=== PATIENT | female | born 1940 | race Caucasian/White ===

== ENCOUNTER → 2016-10-12 09:24 | Outpatient (CLI) | payer MEDICARE ==
[2016-05-20 14:44] VITALS: BMI 22.9
[~2016-10-12 09:24] MED LIST: ABILIFY15 MG PO; CYMBALTA60 MG PO; DIOVAN80 MG PO; EXFORGE 10-1601 TAB PO; LEVAQUIN500 MG PO; NORVASC10 MG PO; OMEPRAZOLE20 M1 PO; OSTEO BI-FLEX1 EAC1 PO; PEPCID AC20 MG PO; PROTONIX40 MG PO; SEROQUEL100 MG PO; SEROQUEL50 MG PO; ULTRAM50 MG PO; VITAMIN B-121000 MCG PO; VITAMIN D5000 UNIT PO
== END | disposition home or self-care (01) ==
LOC: D.CT 10-11 08:30
DX: R10.32 Left lower quadrant pain (principal)

== ENCOUNTER → 2017-07-04 16:28 | Outpatient (CLI) | payer MEDICARE ==
[2016-05-20 14:44] VITALS: BMI 22.9
== END | disposition home or self-care (01) ==
LOC: D.RAD 10:15
DX: R05 Cough (principal)

== ENCOUNTER 2017-10-10 19:23 | Inpatient (IN) | payer MEDICARE ==
[~2017-10-10] VITALS: Ht 147.3 cm; Wt 43.5 kg
[2017-10-10 21:26] LABS: BASOPHILS 0.2 % (0-2); EOSINOPHILS 0.4 % (0-7); HEMATOCRIT 44.4 % (36.0-48.0); HEMOGLOBIN 14.7 g/dL (12-16); IMMATURE GRANULOCYTES 0.3 % (0-5); LYMPHOCYTES 6.7 % (15-50); MCH 30.1 pg (26.0-34.0); MCHC 33.1 g/dL (31.0-37.0); MCV 90.8 fL (80.0-100.0); MONOCYTES 9.5 % (2-11); NEUTROPHILS 82.9 % (40-80); RBC 4.89 10x6/uL (4.00-5.40); RDW 13.9 % (11.5-14.5); WBC 13.2 10x3/uL (4.8-10.8)
[2017-10-10 21:28] LABS: PLATELET COUNT 152 10x3/uL (130-400)
[2017-10-10 21:54] LABS: ALBUMIN 3.1 g/dL (3.4-5.0); ANION GAP 19.3 mmol/L (8-16); BILIRUBIN - TOTAL 0.41 mg/dL (0.2-1.3); CALCIUM 9.1 mg/dL (8.5-10.1); CARBON DIOXIDE 20.2 mmol/L (21.0-32.0); CREATININE - SERUM 5.5 mg/dL (0.6-1.3); POTASSIUM - SERUM 5.5 mmol/L (3.5-5.1); PROTEIN - SERUM 7.7 g/dL (6.4-8.2); URIC ACID 7.9 mg/dL (2.6-7.2)
[2017-10-11] VITALS (7 sets, daily range): BP systolic 113–148; BP diastolic 51–85; Ht 147.3 cm; Wt 43.5 kg
[2017-10-11 05:45] LABS: APPEARANCE CLOUDY (CLEAR); BILIRUBIN NEGATIVE (NEGATIVE); COLOR YELLOW (YELLOW); GLUCOSE NEGATIVE (NEGATIVE); KETONE NEGATIVE (NEGATIVE); NITRITE NEGATIVE (NEGATIVE); PROTEIN 2+ mg/dL (NEGATIVE); SPECIFIC GRAVITY 1.015 (1.005-1.020); UROBILINOGEN NORMAL (NORMAL)
[2017-10-11 05:47] LABS: BACTERIA MODERATE /hpf (NONE SEEN); EPITHELIAL CELLS 0-5 /hpf (0-5); YEAST >1+ WITH HYPHAE /hpf (NONE SEEN)
[2017-10-11 14:50] LABS: CALCIUM 8.2 mg/dL (8.5-10.1); CREATININE - SERUM 5.1 mg/dL (0.6-1.3)
[2017-10-11 14:51] LABS: ANION GAP 16.7 mmol/L (8-16); CARBON DIOXIDE 25.5 mmol/L (21.0-32.0); POTASSIUM - SERUM 4.2 mmol/L (3.5-5.1)
[2017-10-12 02:22] VITALS: BP 125/81
[2017-10-12 05:58] LABS: BASOPHILS 0.1 % (0-2); EOSINOPHILS 0.4 % (0-7); HEMOGLOBIN 14.1 g/dL (12-16); IMMATURE GRANULOCYTES 0.5 % (0-5); LYMPHOCYTES 9.9 % (15-50); MCH 29.9 pg (26.0-34.0); MCHC 33.6 g/dL (31.0-37.0); MCV 89.2 fL (80.0-100.0); MEAN PLATELET VOLUME 10.6 fL (7.4-10.4); MONOCYTES 13.9 % (2-11); NEUTROPHILS 75.2 % (40-80); PLATELET COUNT 125 10x3/uL (130-400); RBC 4.71 10x6/uL (4.00-5.40); RDW 13.9 % (11.5-14.5); WBC 10.8 10x3/uL (4.8-10.8)
[2017-10-12 06:11] LABS: ANION GAP 15.7 mmol/L (8-16); CALCIUM 7.3 mg/dL (8.5-10.1); CREATININE - SERUM 4.6 mg/dL (0.6-1.3); POTASSIUM - SERUM 3.7 mmol/L (3.5-5.1)
[2017-10-12 08:34] VITALS: BP 128/68
[2017-10-12 11:50] VITALS: BP 106/64
[2017-10-12 16:22] VITALS: BP 100/55
[2017-10-12 20:00] VITALS: BP 127/87
[2017-10-13 04:00] VITALS: BP 128/86
[2017-10-13 05:35] LABS: BASOPHILS 0.1 % (0-2); EOSINOPHILS 0.2 % (0-7); HEMOGLOBIN 13.7 g/dL (12-16); IMMATURE GRANULOCYTES 0.3 % (0-5); LYMPHOCYTES 10.3 % (15-50); MCH 29.3 pg (26.0-34.0); MCHC 32.6 g/dL (31.0-37.0); MCV 89.9 fL (80.0-100.0); MEAN PLATELET VOLUME 10.6 fL (7.4-10.4); MONOCYTES 13.1 % (2-11); PLATELET COUNT 119 10x3/uL (130-400); RBC 4.67 10x6/uL (4.00-5.40); RDW 13.9 % (11.5-14.5); WBC 10.2 10x3/uL (4.8-10.8)
[2017-10-13 05:45] LABS: CARBON DIOXIDE 33.3 mmol/L (21.0-32.0); CREATININE - SERUM 3.7 mg/dL (0.6-1.3)
[2017-10-13 05:46] LABS: ANION GAP 13.4 mmol/L (8-16); CALCIUM 6.7 mg/dL (8.5-10.1); POTASSIUM - SERUM 2.7 mmol/L (3.5-5.1)
[2017-10-13 09:02] VITALS: BP 144/87
[2017-10-13 12:14] VITALS: BP 135/77
[2017-10-13 16:19] VITALS: BP 140/86
[2017-10-13 20:46] VITALS: BP 136/79
[2017-10-14 05:50] LABS: BASOPHILS 0.1 % (0-2); EOSINOPHILS 0.5 % (0-7); HEMATOCRIT 44.4 % (36.0-48.0); HEMOGLOBIN 14.6 g/dL (12-16); IMMATURE GRANULOCYTES 0.3 % (0-5); LYMPHOCYTES 21.5 % (15-50); MCH 29.7 pg (26.0-34.0); MCHC 32.9 g/dL (31.0-37.0); MCV 90.2 fL (80.0-100.0); MEAN PLATELET VOLUME 10.1 fL (7.4-10.4); MONOCYTES 14.3 % (2-11); NEUTROPHILS 63.3 % (40-80); PLATELET COUNT 129 10x3/uL (130-400); RBC 4.92 10x6/uL (4.00-5.40); RDW 13.7 % (11.5-14.5); WBC 11.9 10x3/uL (4.8-10.8)
[2017-10-14 06:05] LABS: ANION GAP 16.5 mmol/L (8-16); CALCIUM 7.3 mg/dL (8.5-10.1); CARBON DIOXIDE 27.7 mmol/L (21.0-32.0); CREATININE - SERUM 2.5 mg/dL (0.6-1.3); POTASSIUM - SERUM 3.2 mmol/L (3.5-5.1)
[2017-10-14 06:57] VITALS: BP 130/92
[2017-10-14 10:27] VITALS: BP 112/60
[2017-10-14 12:45] VITALS: BP 142/76
[2017-10-14] MEDS ORDERED: MEGACE400 MG/10 PO (14:55)
[2017-10-14] MEDS ORDERED: ABILIFY15 MG PO (14:55)
[2017-10-14] MEDS ORDERED: NICODERM C1 PATCH .1 TRANSDERM (14:55)
[2017-10-14] MEDS ORDERED: PROTONIX40 MG PO (14:56)
[2017-10-14] MEDS ORDERED: LEVAQUIN500 MG PO (14:58)
[2017-10-14 16:25] VITALS: BP 124/82
== END 2017-10-14 18:06 | DRG 689 ==
LOC: D.M2 19:23 → OBSVTIME 19:54 → D.M2 10-11 11:07
PROVIDERS: Internal Medicine Nephrology
DX: N39.0 Urinary tract infection, site not specified (principal); N17.0 Acute kidney failure with tubular necrosis; J44.9 Chronic obstructive pulmonary disease, unspecified; K21.9 Gastro-esophageal reflux disease without esophagitis; G30.9 Alzheimer's disease, unspecified; F02.80 Dementia in other diseases classified elsewhere, unspecified severity, without behavioral disturbance, psychotic disturbance, mood disturbance, and anxiety; F41.9 Anxiety disorder, unspecified; E78.5 Hyperlipidemia, unspecified; I10 Essential (primary) hypertension; R26.81 Unsteadiness on feet; Z91.81 History of falling; E87.5 Hyperkalemia; E79.0 Hyperuricemia without signs of inflammatory arthritis and tophaceous disease; N28.1 Cyst of kidney, acquired; Z86.73 Personal history of transient ischemic attack (TIA), and cerebral infarction without residual deficits

== ENCOUNTER → 2017-11-29 08:39 | Outpatient (CLI) | payer MEDICARE ==
[2017-10-11 13:45] VITALS: BMI 23.4
[~2017-11-29 08:39] MED LIST changes: +MEGACE400 MG/10 PO; +NICODERM C1 PATCH .1 TRANSDERM
[2017-12-05 20:09] LABS: IMMUNOGLOBULIN E 73 IU/mL (0-100)
== END | disposition home or self-care (01) ==
LOC: D.RT 11-21 11:00 → D.LAB 11-21 11:45 → D.RAD 11-21 12:00 → D.RT 08:39
PROVIDERS: Internal Medicine Pulmonary Disease
DX: J44.9 Chronic obstructive pulmonary disease, unspecified (principal)